=== PATIENT | female | born 1945 | race Caucasian/White ===

== ENCOUNTER 2020-12-12 13:01 | Emergency (ER) | payer OTHER, MEDICARE ==
[~2020-12-12] VITALS: Ht 165.1 cm; Wt 68.2 kg
[~2020-12-12 13:01] MED LIST: ALBU8.5H8 INH; AMLO5TAB PO; ASPI81TA30 PO; LOP25T PO; OMEP20CA15 PO; PREVCR VG; SERT-432 PO; VALS160T30 PO
[2020-12-12 13:35] LABS: BASOPHILS # (AUTO) 0.1 X10'3 (0-0.2); BASOPHILS % (AUTO) 1.2 % (0-1); EOSINOPHILS # (AUTO) 0.2 X10'3 (0-0.9); EOSINOPHILS % (AUTO) 2.5 % (0-6); HEMATOCRIT 43.7 % (35.0-45.0); HEMOGLOBIN 14.7 g/dl (12.0-16.0); LYMPHOCYTES # (AUTO) 2.9 X10'3 (1.1-4.8); LYMPHOCYTES % (AUTO) 31.8 % (21-51); MEAN CORPUSCULAR HEMOGLOBIN 31.5 PG (27.0-31.0); MEAN CORPUSCULAR HGB CONC 33.6 g/dL (33.0-36.5); MEAN CORPUSCULAR VOLUME 93.7 FL (78-98); MEAN PLATELET VOLUME 8.7 FL (7.4-10.4); MONOCYTES # (AUTO) 0.6 X10'3 (0-0.9); MONOCYTES % (AUTO) 7.1 % (2-12); NEUTROPHILS # (AUTO) 5.2 X10'3 (1.8-7.7); NEUTROPHILS % (AUTO) 57.4 % (42-75); PLATELET COUNT 351 X10'3 (140-440); RED BLOOD COUNT 4.67 X10'6 (4.20-5.60); RED CELL DISTRIBUTION WIDTH 14.6 % (11.5-14.5)
[2020-12-12 13:45] LABS: ALANINE AMINOTRANSFERASE 19 U/L (12-78); ALBUMIN 3.9 G/DL (3.4-5.0); ALKALINE PHOSPHATASE 133 IU/L (46-116); ANION GAP 10 (8-16); ASPARTATE AMINO TRANSFERASE 20 U/L (10-37); BILIRUBIN,TOTAL 0.8 MG/DL (0.1-1.0); BLOOD UREA NITROGEN 19 MG/DL (7-18); BUN/CREATININE RATIO 14.8 (6.6-38.0); CALCIUM 10.3 MG/DL (8.5-10.1); CHLORIDE 106 MMOL/L (99-107); CREATININE 1.28 MG/DL (0.40-0.90); GLUCOSE 100 MG/DL (70-104); SODIUM 140 MMOL/L (135-145); TOTAL CARBON DIOXIDE 23.9 MMOL/L (24-32); TOTAL PROTEIN 7.7 G/DL (6.4-8.2); eGFR 41 ML/MIN
[2020-12-12] MEDS ORDERED: apixaban 5mg tablet PO ONE (17:20)
[2020-12-12] MEDS ORDERED: diltiazem CD 120mg capsule (once-daily) PO ONE (17:20)
[2020-12-12] MEDS ORDERED: DILT-36 PO (17:23)
[2020-12-12] MEDS ORDERED: APIX5TAB3 PO (17:23)
[2020-12-12 18:00] VITALS: BP 167/98
== END 2020-12-12 18:10 | disposition home or self-care (01) ==
LOC: ER 13:02
DX: I48.91 Unspecified atrial fibrillation (principal); Z88.0 Allergy status to penicillin; Z79.899 Other long term (current) drug therapy; Z87.891 Personal history of nicotine dependence; Z79.82 Long term (current) use of aspirin
CPT/HCPCS: 36415; 71045; 80053; 83880; 84484; 85025; 93005; 99285